=== PATIENT | male | born 1950 | race Caucasian/White ===

== ENCOUNTER 2018-06-06 19:00 | Inpatient (IN) | payer MEDICARE, MEDICAID ==
[~2018-06-06] VITALS: Ht 175.3 cm; Wt 62.5 kg
[~2018-06-06 19:00] MED LIST: AZIT250T9 PO; CLON-570 PO; METH10 PO; RANI150T7 PO
[2018-06-06] MEDS ORDERED: HALOPERIDOL 5 MG TABLET PO PRN (20:00)
[2018-06-06] MEDS ORDERED: ZOLPIDEM TARTRATE 10 MG TABLET PO PRN (20:00)
[2018-06-06] MEDS ORDERED: LORazepam 1 MG TABLET PO PRN (20:00)
[2018-06-06 20:01] VITALS: BP 126/74
[2018-06-06 20:15] VITALS: BP 125/71
[2018-06-06] MEDS ORDERED: PNEUMOCOCCAL VACCINE POLYVALENT 0.5 ML VIAL [PPSV23] IM ONE (20:30)
[2018-06-06] MEDS ORDERED: ONDANSETRON HCL 4 MG TABLET PO PRN (21:30)
[2018-06-06] MEDS ORDERED: CloNIDine HCL 0.1 MG TABLET PO PRN (21:30)
[2018-06-06] MEDS ORDERED: PETROLATUM,WHITE 71 GM JELLY TP PRN (21:30)
[2018-06-06] MEDS ORDERED: ACETAMINOPHEN 325 MG TABLET PO PRN (21:30)
[2018-06-06] MEDS ORDERED: ALBUTEROL SULFATE HFA 90 MCG/PUFF 8 GM INHALER IH PRN (21:30)
[2018-06-06] MEDS ORDERED: MAGNESIUM HYDROXIDE SUSPENSION 30 ML UDCUP PO PRN (21:30)
[2018-06-06] MEDS ORDERED: MAG HYDROX/AL HYDROX/SIMETH ES 30 ML SUSPENSION UDCUP PO PRN (21:30)
[2018-06-06] MEDS ORDERED: LOPERAMIDE HCL 2 MG CAPSULE PO PRN (21:30)
[2018-06-07] VITALS (10 sets, daily range): BP systolic 92–143; BP diastolic 60–76
[2018-06-07 08:46] LABS: BASOPHILS % (AUTO) 0.3 % (0.0-2.0); EOSINOPHILS % (AUTO) 0.4 % (1.0-6.0); HEMATOCRIT 32.1 % (41-53); LYMPHOCYTES # (AUTO) 2.3 K/uL (1.0-4.8); LYMPHOCYTES % (AUTO) 26.9 % (22.0-44.0); MEAN CORPUSCULAR HEMOGLOBIN 31.2 pg (26.0-34.0); MEAN CORPUSCULAR HGB CONC 34.1 G/dL (31.0-37.0); MEAN CORPUSCULAR VOLUME 91 fL (80-100); MONOCYTES # (AUTO) 0.9 K/uL (0.1-1.0); MONOCYTES % (AUTO) 10.1 % (2.0-9.0); NEUTROPHILS # (AUTO) 5.4 K/uL (1.8-7.7); NEUTROPHILS % (AUTO) 62.3 % (40.0-70.0); PLATELET COUNT (AUTO) 374 K/uL (150-450); RED BLOOD CELL COUNT(AUTO) 3.52 MIL/uL (4.50-5.90); RED CELL DISTRIBUTION WIDTH 15.3 % (11.5-14.5)
[2018-06-07 09:07] LABS: HEMOGLOBIN A1C 5.3 % (4.5-6.2)
[2018-06-07 09:14] LABS: ALANINE AMINOTRANSFERASE 27 U/L (12-78); ALBUMIN 2.3 g/dL (3.4-5.0); ALKALINE PHOSPHATASE 89 U/L (46-116); ANION GAP 5 mmol/L (8-16); ASPARTATE AMINOTRANSFERASE 29 U/L (15-37); BILIRUBIN,TOTAL 0.2 mg/dL (0.1-1.0); CALCIUM, TOTAL 8.1 mg/dL (8.8-10.5); CARBON DIOXIDE 30 mmol/L (22-29); CHLORIDE 104 mmol/L (98-107); CHOL/HDL RATIO 3.4 (4.2-7.3); CHOLESTEROL 85 mg/dL (131-200); CREATININE 0.72 mg/dL (0.60-1.30); FREE T4 (FREE THYROXINE) 1.02 ng/dL (0.76-1.46); GLOMERULAR FILTR. RATE CALC > 60 mL/min (>60); GLUCOSE,RANDOM 72 mg/dL (70-110); HDL CHOLESTEROL 25 mg/dL (40-60); LDL CHOL (CALC.) 47 mg/dL (0-130); POTASSIUM 3.9 mmol/L (3.5-5.1); SODIUM SERUM 139 mmol/L (136-145); TOTAL PROTEIN, SERUM 7.5 g/dL (6.4-8.2); TRIGLYCERIDES 63 mg/dL (15-150); UREA NITROGEN, BLOOD 11 mg/dL (7-18)
[2018-06-07] MEDS: BACITRACIN 28.4 GM OINTMENT TP SCH (09:21)
[2018-06-07] MEDS: METHADONE HCL 10 MG TABLET PO SCH (12:02)
[2018-06-07] MEDS: OLANZapine 5 MG TABLET PO SCH (16:48)
[2018-06-08 06:32] VITALS: BP 110/68
[2018-06-08 06:45] VITALS: BP 126/81
[2018-06-08 08:00] VITALS: BP 134/67
[2018-06-08] MEDS: OLANZapine 5 MG TABLET PO SCH ×2 (08:21→16:41)
[2018-06-08] MEDS: THIAMINE HCL 100 MG TABLET PO SCH (08:21)
[2018-06-08] MEDS: METHADONE HCL 10 MG TABLET PO SCH (08:21)
[2018-06-08] MEDS: BACITRACIN 28.4 GM OINTMENT TP SCH (08:21)
[2018-06-08] MEDS: FOLIC ACID 1 MG TABLET PO SCH (08:21)
[2018-06-08 10:45] VITALS: BP 117/92
[2018-06-08 14:45] VITALS: BP 119/85
[2018-06-08 16:15] VITALS: BP 108/63
[2018-06-09 05:41] VITALS: BP 110/70
[2018-06-09 08:00] VITALS: BP 136/71
[2018-06-09 08:09] VITALS: BP 136/71
[2018-06-09] MEDS: METHADONE HCL 10 MG TABLET PO SCH (08:42)
[2018-06-09] MEDS: BACITRACIN 28.4 GM OINTMENT TP SCH (08:43)
[2018-06-09] MEDS: OLANZapine 5 MG TABLET PO SCH (08:43)
[2018-06-09] MEDS: FOLIC ACID 1 MG TABLET PO SCH (08:43)
[2018-06-09] MEDS: THIAMINE HCL 100 MG TABLET PO SCH (08:43)
[2018-06-09] MEDS: FERROUS SULFATE 325 MG EC TABLET PO SCH (16:25)
[2018-06-09] MEDS: IBUPROFEN 400 MG TABLET PO PRN (16:25)
[2018-06-09] MEDS: OLANZapine 10 MG TABLET PO SCH (16:26)
[2018-06-09 16:47] VITALS: BP 115/60
[2018-06-10] MEDS: AMOX TR/POT CLAV 500 MG/125 MG TABLET PO SCH ×3 (00:48→16:17)
[2018-06-10 00:58] VITALS: BP 136/89
[2018-06-10] MEDS: IBUPROFEN 400 MG TABLET PO PRN ×2 (01:03→21:43)
[2018-06-10] MEDS: FERROUS SULFATE 325 MG EC TABLET PO SCH ×2 (07:04→16:33)
[2018-06-10 08:27] VITALS: BP_SYST 116; BP_SYST 123; BP_DIAS 60; BP_DIAS 63
[2018-06-10] MEDS: THIAMINE HCL 100 MG TABLET PO SCH (08:34)
[2018-06-10] MEDS: FOLIC ACID 1 MG TABLET PO SCH (08:34)
[2018-06-10] MEDS: OLANZapine 10 MG TABLET PO SCH ×2 (08:34→16:33)
[2018-06-10] MEDS: METHADONE HCL 10 MG TABLET PO SCH (08:34)
[2018-06-10] MEDS: BACITRACIN 28.4 GM OINTMENT TP SCH (08:35)
[2018-06-10] MEDS: BuPROPion HCL XL 150 MG ER TABLET PO SCH (11:00)
[2018-06-10 16:15] VITALS: BP 138/89
[2018-06-10 21:37] VITALS: BP 137/66
[2018-06-11 00:03] VITALS: BP 122/71
[2018-06-11] MEDS: AMOX TR/POT CLAV 500 MG/125 MG TABLET PO SCH ×3 (00:15→16:10)
[2018-06-11] MEDS: FERROUS SULFATE 325 MG EC TABLET PO SCH ×2 (06:58→17:06)
[2018-06-11 08:02] VITALS: BP 116/85
[2018-06-11] MEDS: OLANZapine 10 MG TABLET PO SCH ×2 (08:09→17:07)
[2018-06-11] MEDS: BuPROPion HCL XL 150 MG ER TABLET PO SCH (08:09)
[2018-06-11] MEDS: THIAMINE HCL 100 MG TABLET PO SCH (08:09)
[2018-06-11] MEDS: FOLIC ACID 1 MG TABLET PO SCH (08:09)
[2018-06-11] MEDS: METHADONE HCL 10 MG TABLET PO SCH (08:09)
[2018-06-11] MEDS: BACITRACIN 28.4 GM OINTMENT TP SCH (08:13)
[2018-06-11] MEDS: GuaiFENesin/D-METHORPHAN [SUGAR-FREE] 200-20MG/10 ML SYRUP UDCUP PO PRN (08:20)
[2018-06-11 13:13] VITALS: BP 112/78
[2018-06-11] MEDS: TraMADol HCL 50 MG TABLET PO PRN (13:13)
[2018-06-11 16:02] VITALS: BP 111/73
[2018-06-11] MEDS: LEVOFLOXACIN 250 MG TABLET PO SCH (16:02)
[2018-06-11 22:03] VITALS: BP 139/78
[2018-06-11] MEDS: IBUPROFEN 400 MG TABLET PO PRN (22:11)
[2018-06-12] MEDS: AMOX TR/POT CLAV 500 MG/125 MG TABLET PO SCH ×3 (00:03→17:42)
[2018-06-12 06:24] VITALS: BP 118/77
[2018-06-12] MEDS: FERROUS SULFATE 325 MG EC TABLET PO SCH ×3 (06:39→17:42)
[2018-06-12 07:21] LABS: BASOPHILS % (AUTO) 0.4 % (0.0-2.0); EOSINOPHILS % (AUTO) 0.5 % (1.0-6.0); HEMATOCRIT 27.8 % (41-53); HEMOGLOBIN 9.8 g/dL (13.5-17.5); LYMPHOCYTES # (AUTO) 2.1 K/uL (1.0-4.8); LYMPHOCYTES % (AUTO) 27.6 % (22.0-44.0); MEAN CORPUSCULAR HEMOGLOBIN 31.4 pg (26.0-34.0); MEAN CORPUSCULAR HGB CONC 35.1 G/dL (31.0-37.0); MEAN CORPUSCULAR VOLUME 90 fL (80-100); MONOCYTES # (AUTO) 1.1 K/uL (0.1-1.0); NEUTROPHILS # (AUTO) 4.3 K/uL (1.8-7.7); NEUTROPHILS % (AUTO) 56.5 % (40.0-70.0); PLATELET COUNT (AUTO) 380 K/uL (150-450); RED BLOOD CELL COUNT(AUTO) 3.11 MIL/uL (4.50-5.90); RED CELL DISTRIBUTION WIDTH 14.9 % (11.5-14.5)
[2018-06-12 08:06] VITALS: BP 137/82
[2018-06-12] MEDS: METHADONE HCL 10 MG TABLET PO SCH (08:37)
[2018-06-12] MEDS: FOLIC ACID 1 MG TABLET PO SCH (08:38)
[2018-06-12] MEDS: THIAMINE HCL 100 MG TABLET PO SCH (08:38)
[2018-06-12] MEDS: BuPROPion HCL XL 150 MG ER TABLET PO SCH (08:38)
[2018-06-12] MEDS: LEVOFLOXACIN 250 MG TABLET PO SCH (08:38)
[2018-06-12] MEDS: OLANZapine 10 MG TABLET PO SCH ×2 (08:38→17:42)
[2018-06-12] MEDS: BACITRACIN 28.4 GM OINTMENT TP SCH (08:39)
[2018-06-12 17:54] VITALS: BP 133/77
[2018-06-12] MEDS ORDERED: BENZONATATE 100 MG CAPSULE PO PRN (19:00)
[2018-06-13] MEDS: AMOX TR/POT CLAV 500 MG/125 MG TABLET PO SCH ×3 (00:02→16:02)
[2018-06-13 05:17] VITALS: BP 126/68
[2018-06-13] MEDS: FERROUS SULFATE 325 MG EC TABLET PO SCH ×3 (06:39→16:56)
[2018-06-13 08:04] VITALS: BP 124/82
[2018-06-13] MEDS: GuaiFENesin/D-METHORPHAN [SUGAR-FREE] 200-20MG/10 ML SYRUP UDCUP PO PRN (08:29)
[2018-06-13] MEDS: LEVOFLOXACIN 250 MG TABLET PO SCH (08:58)
[2018-06-13] MEDS: METHADONE HCL 10 MG TABLET PO SCH (08:58)
[2018-06-13] MEDS: FOLIC ACID 1 MG TABLET PO SCH (08:58)
[2018-06-13] MEDS: OLANZapine 10 MG TABLET PO SCH ×2 (08:59→16:56)
[2018-06-13] MEDS: BuPROPion HCL XL 150 MG ER TABLET PO SCH (08:59)
[2018-06-13] MEDS: THIAMINE HCL 100 MG TABLET PO SCH (08:59)
[2018-06-13] MEDS: AZITHROMYCIN 250 MG TABLET PO SCH (08:59)
[2018-06-13] MEDS: BACITRACIN 28.4 GM OINTMENT TP SCH (08:59)
[2018-06-13 16:02] VITALS: BP 118/74
[2018-06-13] MEDS: TraMADol HCL 50 MG TABLET PO PRN (16:02)
[2018-06-14] MEDS: AMOX TR/POT CLAV 500 MG/125 MG TABLET PO SCH ×3 (00:38→16:04)
[2018-06-14 02:17] VITALS: BP 120/68
[2018-06-14] MEDS: FERROUS SULFATE 325 MG EC TABLET PO SCH ×3 (07:14→16:45)
[2018-06-14 08:43] VITALS: BP 136/77
[2018-06-14] MEDS: OLANZapine 10 MG TABLET PO SCH ×2 (08:58→16:45)
[2018-06-14] MEDS: METHADONE HCL 10 MG TABLET PO SCH (08:59)
[2018-06-14] MEDS: FOLIC ACID 1 MG TABLET PO SCH (08:59)
[2018-06-14] MEDS: AZITHROMYCIN 250 MG TABLET PO SCH (08:59)
[2018-06-14] MEDS: THIAMINE HCL 100 MG TABLET PO SCH (08:59)
[2018-06-14] MEDS: BACITRACIN 28.4 GM OINTMENT TP SCH (08:59)
[2018-06-14] MEDS: BuPROPion HCL XL 150 MG ER TABLET PO SCH (08:59)
[2018-06-14] MEDS: LEVOFLOXACIN 250 MG TABLET PO SCH (09:01)
[2018-06-14 16:04] VITALS: BP 126/79
[2018-06-14 22:56] VITALS: BP 130/78
[2018-06-14] MEDS: TraMADol HCL 50 MG TABLET PO PRN (22:56)
[2018-06-15] MEDS: AMOX TR/POT CLAV 500 MG/125 MG TABLET PO SCH ×3 (00:30→16:11)
[2018-06-15 02:42] VITALS: BP 126/72
[2018-06-15] MEDS: FERROUS SULFATE 325 MG EC TABLET PO SCH ×3 (07:12→16:33)
[2018-06-15 08:19] VITALS: BP 125/79
[2018-06-15] MEDS: OLANZapine 10 MG TABLET PO SCH ×2 (09:16→16:33)
[2018-06-15] MEDS: AZITHROMYCIN 250 MG TABLET PO SCH (09:17)
[2018-06-15] MEDS: METHADONE HCL 10 MG TABLET PO SCH (09:17)
[2018-06-15] MEDS: FOLIC ACID 1 MG TABLET PO SCH (09:17)
[2018-06-15] MEDS: BACITRACIN 28.4 GM OINTMENT TP SCH (09:17)
[2018-06-15] MEDS: LEVOFLOXACIN 250 MG TABLET PO SCH (09:17)
[2018-06-15] MEDS: BuPROPion HCL XL 150 MG ER TABLET PO SCH (09:17)
[2018-06-15] MEDS: THIAMINE HCL 100 MG TABLET PO SCH (09:17)
[2018-06-15 16:06] VITALS: BP 113/73
[2018-06-16 01:29] VITALS: BP 110/70
[2018-06-16] MEDS: FERROUS SULFATE 325 MG EC TABLET PO SCH ×3 (07:02→16:44)
[2018-06-16 08:29] VITALS: BP 125/67
[2018-06-16] MEDS: AZITHROMYCIN 250 MG TABLET PO SCH (08:41)
[2018-06-16] MEDS: FOLIC ACID 1 MG TABLET PO SCH (08:41)
[2018-06-16] MEDS: THIAMINE HCL 100 MG TABLET PO SCH (08:41)
[2018-06-16] MEDS: BuPROPion HCL XL 150 MG ER TABLET PO SCH (08:41)
[2018-06-16] MEDS: OLANZapine 10 MG TABLET PO SCH ×2 (08:41→16:44)
[2018-06-16] MEDS: METHADONE HCL 10 MG TABLET PO SCH (08:42)
[2018-06-16] MEDS: BACITRACIN 28.4 GM OINTMENT TP SCH (08:43)
[2018-06-16] MEDS: LEVOFLOXACIN 250 MG TABLET PO SCH (09:05)
[2018-06-16 16:03] VITALS: BP 122/71
[2018-06-16 22:04] VITALS: BP 137/69
[2018-06-16] MEDS: TraMADol HCL 50 MG TABLET PO PRN (22:04)
[2018-06-17 04:26] VITALS: BP 126/81
[2018-06-17] MEDS: FERROUS SULFATE 325 MG EC TABLET PO SCH ×3 (06:54→16:16)
[2018-06-17 08:25] VITALS: BP 123/67
[2018-06-17] MEDS: AZITHROMYCIN 250 MG TABLET PO SCH (09:01)
[2018-06-17] MEDS: OLANZapine 10 MG TABLET PO SCH ×2 (09:01→16:16)
[2018-06-17] MEDS: LEVOFLOXACIN 250 MG TABLET PO SCH (09:01)
[2018-06-17] MEDS: FOLIC ACID 1 MG TABLET PO SCH (09:01)
[2018-06-17] MEDS: THIAMINE HCL 100 MG TABLET PO SCH (09:01)
[2018-06-17] MEDS: METHADONE HCL 10 MG TABLET PO SCH (09:01)
[2018-06-17] MEDS: BuPROPion HCL XL 150 MG ER TABLET PO SCH (09:01)
[2018-06-17 16:06] VITALS: BP 126/60
[2018-06-18 03:39] VITALS: BP 128/64
[2018-06-18] MEDS: FERROUS SULFATE 325 MG EC TABLET PO SCH ×3 (06:58→16:23)
[2018-06-18 08:26] VITALS: BP 124/83
[2018-06-18] MEDS: THIAMINE HCL 100 MG TABLET PO SCH (08:56)
[2018-06-18] MEDS: BuPROPion HCL XL 150 MG ER TABLET PO SCH (08:56)
[2018-06-18] MEDS: AZITHROMYCIN 250 MG TABLET PO SCH (08:56)
[2018-06-18] MEDS: FOLIC ACID 1 MG TABLET PO SCH (08:57)
[2018-06-18] MEDS: LEVOFLOXACIN 250 MG TABLET PO SCH (08:57)
[2018-06-18] MEDS: METHADONE HCL 10 MG TABLET PO SCH (08:57)
[2018-06-18] MEDS: OLANZapine 10 MG TABLET PO SCH ×2 (08:57→16:23)
[2018-06-18 11:37] VITALS: BP 118/78
[2018-06-18] MEDS: IBUPROFEN 400 MG TABLET PO PRN (11:37)
[2018-06-18] MEDS ORDERED: OLAN10TA3 PO (12:25)
[2018-06-18] MEDS ORDERED: LEVO500 PO (12:25)
[2018-06-18] MEDS ORDERED: FERR-89 PO (12:25)
[2018-06-18] MEDS ORDERED: BUPR-93 PO (12:25)
[2018-06-18 16:00] VITALS: BP 120/78
[2018-06-18] MEDS: TraMADol HCL 50 MG TABLET PO PRN (16:24)
[2018-06-19 00:15] VITALS: BP 108/63
[2018-06-19] MEDS: FERROUS SULFATE 325 MG EC TABLET PO SCH ×3 (07:00→16:37)
[2018-06-19 08:14] VITALS: BP 114/66
[2018-06-19] MEDS: AZITHROMYCIN 250 MG TABLET PO SCH (08:31)
[2018-06-19] MEDS: BuPROPion HCL XL 150 MG ER TABLET PO SCH (08:31)
[2018-06-19] MEDS: THIAMINE HCL 100 MG TABLET PO SCH (08:31)
[2018-06-19] MEDS: OLANZapine 10 MG TABLET PO SCH ×2 (08:31→16:37)
[2018-06-19] MEDS: METHADONE HCL 10 MG TABLET PO SCH (08:31)
[2018-06-19] MEDS: FOLIC ACID 1 MG TABLET PO SCH (08:31)
[2018-06-19] MEDS: LEVOFLOXACIN 250 MG TABLET PO SCH (09:09)
[2018-06-19 13:27] VITALS: BP 122/73
[2018-06-19] MEDS: TraMADol HCL 50 MG TABLET PO PRN (13:27)
[2018-06-19 16:07] VITALS: BP 107/60
[2018-06-20 00:30] VITALS: BP 121/68
[2018-06-20] MEDS: FERROUS SULFATE 325 MG EC TABLET PO SCH ×3 (07:07→17:01)
[2018-06-20 08:21] VITALS: BP 122/75
[2018-06-20] MEDS: LEVOFLOXACIN 250 MG TABLET PO SCH (08:46)
[2018-06-20] MEDS: FOLIC ACID 1 MG TABLET PO SCH (08:46)
[2018-06-20] MEDS: METHADONE HCL 10 MG TABLET PO SCH (08:46)
[2018-06-20] MEDS: THIAMINE HCL 100 MG TABLET PO SCH (08:46)
[2018-06-20] MEDS: BuPROPion HCL XL 150 MG ER TABLET PO SCH (08:46)
[2018-06-20] MEDS: OLANZapine 10 MG TABLET PO SCH ×2 (08:46→17:01)
[2018-06-20 16:08] VITALS: BP 137/74
[2018-06-21 05:11] VITALS: BP 128/72
[2018-06-21] MEDS: FERROUS SULFATE 325 MG EC TABLET PO SCH ×3 (07:09→16:34)
[2018-06-21] MEDS: BuPROPion HCL XL 150 MG ER TABLET PO SCH (08:50)
[2018-06-21] MEDS: FOLIC ACID 1 MG TABLET PO SCH (08:50)
[2018-06-21] MEDS: THIAMINE HCL 100 MG TABLET PO SCH (08:50)
[2018-06-21] MEDS: OLANZapine 10 MG TABLET PO SCH ×2 (08:50→16:34)
[2018-06-21] MEDS: LEVOFLOXACIN 250 MG TABLET PO SCH (08:50)
[2018-06-21] MEDS: METHADONE HCL 10 MG TABLET PO SCH (08:50)
[2018-06-21 09:36] VITALS: BP 120/70
[2018-06-21] MEDS ORDERED: LEVOFLOXACIN 250 MG TABLET PO SCH (10:00)
[2018-06-21] MEDS: IBUPROFEN 400 MG TABLET PO PRN (15:56)
[2018-06-21 16:23] VITALS: BP 136/84
[2018-06-22 05:48] VITALS: BP 131/78
[2018-06-22] MEDS: TraMADol HCL 50 MG TABLET PO PRN (05:54)
[2018-06-22] MEDS: FERROUS SULFATE 325 MG EC TABLET PO SCH ×3 (06:45→16:34)
[2018-06-22 08:25] VITALS: BP 120/65
[2018-06-22] MEDS: THIAMINE HCL 100 MG TABLET PO SCH (08:39)
[2018-06-22] MEDS: FOLIC ACID 1 MG TABLET PO SCH (08:39)
[2018-06-22] MEDS: BuPROPion HCL XL 150 MG ER TABLET PO SCH (08:39)
[2018-06-22] MEDS: OLANZapine 10 MG TABLET PO SCH ×2 (08:39→16:34)
[2018-06-22] MEDS: METHADONE HCL 10 MG TABLET PO SCH (08:40)
[2018-06-22] MEDS: LEVOFLOXACIN 250 MG TABLET PO SCH (08:40)
[2018-06-22 14:19] VITALS: BP 116/72
[2018-06-22] MEDS: IBUPROFEN 400 MG TABLET PO PRN (14:19)
[2018-06-22 16:11] VITALS: BP 110/60
[2018-06-23 05:00] VITALS: BP 108/62
[2018-06-23] MEDS: FERROUS SULFATE 325 MG EC TABLET PO SCH ×3 (06:43→16:29)
[2018-06-23 08:17] VITALS: BP 106/69
[2018-06-23] MEDS: THIAMINE HCL 100 MG TABLET PO SCH (08:54)
[2018-06-23] MEDS: BuPROPion HCL XL 150 MG ER TABLET PO SCH (08:54)
[2018-06-23] MEDS: FOLIC ACID 1 MG TABLET PO SCH (08:54)
[2018-06-23] MEDS: LEVOFLOXACIN 250 MG TABLET PO SCH (08:54)
[2018-06-23] MEDS: OLANZapine 10 MG TABLET PO SCH (08:54)
[2018-06-23] MEDS: METHADONE HCL 10 MG TABLET PO SCH (08:54)
[2018-06-23 16:05] VITALS: BP 129/72
[2018-06-23] MEDS: OLANZapine 7.5 MG TABLET PO SCH (16:30)
[2018-06-24 01:52] VITALS: BP 106/68
[2018-06-24] MEDS: FERROUS SULFATE 325 MG EC TABLET PO SCH ×3 (06:32→16:37)
[2018-06-24 08:22] VITALS: BP 113/66
[2018-06-24] MEDS: THIAMINE HCL 100 MG TABLET PO SCH (08:35)
[2018-06-24] MEDS: FOLIC ACID 1 MG TABLET PO SCH (08:35)
[2018-06-24] MEDS: LEVOFLOXACIN 250 MG TABLET PO SCH (08:35)
[2018-06-24] MEDS: OLANZapine 7.5 MG TABLET PO SCH ×2 (08:35→16:37)
[2018-06-24] MEDS: BuPROPion HCL XL 150 MG ER TABLET PO SCH (08:35)
[2018-06-24] MEDS: METHADONE HCL 10 MG TABLET PO SCH (08:36)
[2018-06-24 11:02] VITALS: BP 116/72
[2018-06-24] MEDS: TraMADol HCL 50 MG TABLET PO PRN (11:02)
[2018-06-24 16:11] VITALS: BP 120/71
[2018-06-25 00:01] VITALS: BP 100/61
[2018-06-25] MEDS: FERROUS SULFATE 325 MG EC TABLET PO SCH ×3 (06:35→16:28)
[2018-06-25 08:15] VITALS: BP 105/49
[2018-06-25 08:45] VITALS: BP 110/61
[2018-06-25] MEDS: FOLIC ACID 1 MG TABLET PO SCH (08:45)
[2018-06-25] MEDS: METHADONE HCL 10 MG TABLET PO SCH (08:45)
[2018-06-25] MEDS: THIAMINE HCL 100 MG TABLET PO SCH (08:45)
[2018-06-25] MEDS: BuPROPion HCL XL 150 MG ER TABLET PO SCH (08:45)
[2018-06-25] MEDS: OLANZapine 7.5 MG TABLET PO SCH ×2 (08:45→16:28)
[2018-06-25 16:13] VITALS: BP 119/69
[2018-06-26 02:47] VITALS: BP 114/76
[2018-06-26] MEDS: FERROUS SULFATE 325 MG EC TABLET PO SCH ×3 (06:49→16:58)
[2018-06-26 08:42] VITALS: BP 117/66
[2018-06-26] MEDS: BuPROPion HCL XL 150 MG ER TABLET PO SCH (08:46)
[2018-06-26] MEDS: FOLIC ACID 1 MG TABLET PO SCH (08:47)
[2018-06-26] MEDS: THIAMINE HCL 100 MG TABLET PO SCH (08:47)
[2018-06-26] MEDS: METHADONE HCL 10 MG TABLET PO SCH (08:47)
[2018-06-26] MEDS: OLANZapine 7.5 MG TABLET PO SCH ×2 (08:47→16:58)
[2018-06-26 13:58] VITALS: BP 116/68
[2018-06-26] MEDS: IBUPROFEN 400 MG TABLET PO PRN (13:58)
[2018-06-26 16:10] VITALS: BP 112/69
[2018-06-27 04:14] VITALS: BP 117/75
[2018-06-27] MEDS: FERROUS SULFATE 325 MG EC TABLET PO SCH ×3 (06:16→17:00)
[2018-06-27 08:13] VITALS: BP 114/67
[2018-06-27] MEDS: METHADONE HCL 10 MG TABLET PO SCH (08:24)
[2018-06-27] MEDS: THIAMINE HCL 100 MG TABLET PO SCH (08:24)
[2018-06-27] MEDS: BuPROPion HCL XL 150 MG ER TABLET PO SCH (08:24)
[2018-06-27] MEDS: OLANZapine 7.5 MG TABLET PO SCH ×2 (08:24→17:00)
[2018-06-27] MEDS: FOLIC ACID 1 MG TABLET PO SCH (08:24)
[2018-06-27 16:10] VITALS: BP 114/60
[2018-06-28 01:26] VITALS: BP 114/63
[2018-06-28] MEDS: FERROUS SULFATE 325 MG EC TABLET PO SCH ×3 (06:01→16:26)
[2018-06-28 08:18] VITALS: BP 135/77
[2018-06-28] MEDS: FOLIC ACID 1 MG TABLET PO SCH (08:45)
[2018-06-28] MEDS: OLANZapine 7.5 MG TABLET PO SCH ×2 (08:45→16:27)
[2018-06-28] MEDS: METHADONE HCL 10 MG TABLET PO SCH (08:45)
[2018-06-28] MEDS: BuPROPion HCL XL 150 MG ER TABLET PO SCH (08:45)
[2018-06-28] MEDS: THIAMINE HCL 100 MG TABLET PO SCH (08:45)
[2018-06-28 13:25] VITALS: BP 110/62
[2018-06-28] MEDS: IBUPROFEN 400 MG TABLET PO PRN (13:25)
[2018-06-28 16:19] VITALS: BP 103/74
[2018-06-29 04:36] VITALS: BP 116/78
[2018-06-29] MEDS: FERROUS SULFATE 325 MG EC TABLET PO SCH ×3 (07:04→16:33)
[2018-06-29 08:28] VITALS: BP 137/61
[2018-06-29] MEDS: BuPROPion HCL XL 150 MG ER TABLET PO SCH (09:03)
[2018-06-29] MEDS: FOLIC ACID 1 MG TABLET PO SCH (09:03)
[2018-06-29] MEDS: THIAMINE HCL 100 MG TABLET PO SCH (09:03)
[2018-06-29] MEDS: OLANZapine 7.5 MG TABLET PO SCH ×2 (09:04→16:33)
[2018-06-29] MEDS: METHADONE HCL 10 MG TABLET PO SCH (09:05)
[2018-06-29] MEDS ORDERED: LORazepam 2 MG/ML VIAL IM PRN (10:30)
[2018-06-29 16:21] VITALS: BP 124/74
[2018-06-30 00:12] VITALS: BP 122/80
[2018-06-30] MEDS: FERROUS SULFATE 325 MG EC TABLET PO SCH ×3 (06:27→16:23)
[2018-06-30 08:41] VITALS: BP 108/68
[2018-06-30] MEDS: METHADONE HCL 10 MG TABLET PO SCH (08:47)
[2018-06-30] MEDS: BuPROPion HCL XL 150 MG ER TABLET PO SCH (08:47)
[2018-06-30] MEDS: FOLIC ACID 1 MG TABLET PO SCH (08:47)
[2018-06-30] MEDS: OLANZapine 7.5 MG TABLET PO SCH ×2 (08:47→16:23)
[2018-06-30] MEDS: THIAMINE HCL 100 MG TABLET PO SCH (08:47)
[2018-06-30 16:13] VITALS: BP 125/84
[2018-07-01 05:52] VITALS: BP 126/80
[2018-07-01] MEDS: FERROUS SULFATE 325 MG EC TABLET PO SCH ×3 (06:34→16:22)
[2018-07-01 08:30] VITALS: BP 109/64
[2018-07-01] MEDS: BuPROPion HCL XL 150 MG ER TABLET PO SCH (08:35)
[2018-07-01] MEDS: THIAMINE HCL 100 MG TABLET PO SCH (08:35)
[2018-07-01] MEDS: FOLIC ACID 1 MG TABLET PO SCH (08:35)
[2018-07-01] MEDS: OLANZapine 7.5 MG TABLET PO SCH ×2 (08:35→16:22)
[2018-07-01] MEDS: METHADONE HCL 10 MG TABLET PO SCH (08:35)
[2018-07-01 14:50] VITALS: BP 112/66
[2018-07-01] MEDS: IBUPROFEN 400 MG TABLET PO PRN (14:50)
[2018-07-01 16:16] VITALS: BP 118/68
[2018-07-02 01:00] VITALS: BP 131/72
[2018-07-02] MEDS: FERROUS SULFATE 325 MG EC TABLET PO SCH ×3 (06:43→16:19)
[2018-07-02 07:54] VITALS: BP 121/73
[2018-07-02 08:01] VITALS: BP 121/70
[2018-07-02] MEDS: BuPROPion HCL XL 150 MG ER TABLET PO SCH (08:15)
[2018-07-02] MEDS: DOCUSATE SODIUM 100 MG CAPSULE PO PRN ×2 (08:15→08:38)
[2018-07-02] MEDS: METHADONE HCL 10 MG TABLET PO SCH (08:15)
[2018-07-02] MEDS: FOLIC ACID 1 MG TABLET PO SCH (08:15)
[2018-07-02] MEDS: OLANZapine 7.5 MG TABLET PO SCH ×2 (08:15→16:20)
[2018-07-02] MEDS: THIAMINE HCL 100 MG TABLET PO SCH (08:15)
[2018-07-02 13:50] VITALS: BP 118/72
[2018-07-02] MEDS: IBUPROFEN 400 MG TABLET PO PRN (13:50)
[2018-07-02 16:12] VITALS: BP 120/69
[2018-07-03 01:56] VITALS: BP 102/63
[2018-07-03] MEDS: FERROUS SULFATE 325 MG EC TABLET PO SCH ×3 (06:47→16:34)
[2018-07-03 08:15] VITALS: BP 142/82
[2018-07-03] MEDS: FOLIC ACID 1 MG TABLET PO SCH (08:24)
[2018-07-03] MEDS: BuPROPion HCL XL 150 MG ER TABLET PO SCH (08:24)
[2018-07-03] MEDS: OLANZapine 7.5 MG TABLET PO SCH ×2 (08:24→16:34)
[2018-07-03] MEDS: METHADONE HCL 10 MG TABLET PO SCH (08:24)
[2018-07-03] MEDS: THIAMINE HCL 100 MG TABLET PO SCH (08:24)
[2018-07-03 16:10] VITALS: BP 110/70
[2018-07-03 19:41] VITALS: BP 140/84
[2018-07-03] MEDS: TraMADol HCL 50 MG TABLET PO PRN (19:48)
[2018-07-04 05:27] VITALS: BP 133/88
[2018-07-04] MEDS: FERROUS SULFATE 325 MG EC TABLET PO SCH ×3 (06:50→16:32)
[2018-07-04 08:30] VITALS: BP 124/77
[2018-07-04] MEDS: THIAMINE HCL 100 MG TABLET PO SCH (08:30)
[2018-07-04] MEDS: FOLIC ACID 1 MG TABLET PO SCH (08:30)
[2018-07-04] MEDS: BuPROPion HCL XL 150 MG ER TABLET PO SCH (08:30)
[2018-07-04] MEDS: OLANZapine 7.5 MG TABLET PO SCH ×2 (08:30→16:32)
[2018-07-04] MEDS: METHADONE HCL 10 MG TABLET PO SCH (08:34)
[2018-07-04 16:08] VITALS: BP 118/68
[2018-07-05 03:19] VITALS: BP 120/72
[2018-07-05] MEDS: FERROUS SULFATE 325 MG EC TABLET PO SCH ×3 (06:20→16:16)
[2018-07-05 08:25] VITALS: BP 101/60
[2018-07-05] MEDS: OLANZapine 7.5 MG TABLET PO SCH ×2 (08:25→16:16)
[2018-07-05] MEDS: BuPROPion HCL XL 150 MG ER TABLET PO SCH (08:25)
[2018-07-05] MEDS: FOLIC ACID 1 MG TABLET PO SCH (08:25)
[2018-07-05] MEDS: METHADONE HCL 10 MG TABLET PO SCH (08:25)
[2018-07-05] MEDS: THIAMINE HCL 100 MG TABLET PO SCH (08:26)
[2018-07-05] MEDS: IBUPROFEN 400 MG TABLET PO PRN (09:31)
[2018-07-05 10:31] VITALS: BP 110/65
[2018-07-05 16:07] VITALS: BP 121/73
[2018-07-06 01:04] VITALS: BP 103/64
[2018-07-06] MEDS: FERROUS SULFATE 325 MG EC TABLET PO SCH ×3 (06:48→16:31)
[2018-07-06 07:49] VITALS: BP 112/67
[2018-07-06] MEDS: FOLIC ACID 1 MG TABLET PO SCH (08:11)
[2018-07-06] MEDS: THIAMINE HCL 100 MG TABLET PO SCH (08:11)
[2018-07-06] MEDS: BuPROPion HCL XL 150 MG ER TABLET PO SCH (08:11)
[2018-07-06] MEDS: OLANZapine 7.5 MG TABLET PO SCH ×2 (08:11→16:31)
[2018-07-06] MEDS: METHADONE HCL 10 MG TABLET PO SCH (08:12)
[2018-07-06 09:14] VITALS: BP 112/77
[2018-07-06 16:04] VITALS: BP 101/69
[2018-07-07 01:33] VITALS: BP 118/76
[2018-07-07] MEDS: FERROUS SULFATE 325 MG EC TABLET PO SCH ×3 (06:39→16:50)
[2018-07-07 08:06] VITALS: BP 127/75
[2018-07-07] MEDS: METHADONE HCL 10 MG TABLET PO SCH (08:19)
[2018-07-07] MEDS: OLANZapine 7.5 MG TABLET PO SCH ×2 (08:19→16:51)
[2018-07-07] MEDS: BuPROPion HCL XL 150 MG ER TABLET PO SCH (08:19)
[2018-07-07] MEDS: THIAMINE HCL 100 MG TABLET PO SCH (08:19)
[2018-07-07] MEDS: FOLIC ACID 1 MG TABLET PO SCH (08:19)
[2018-07-07] MEDS: IBUPROFEN 400 MG TABLET PO PRN (15:06)
[2018-07-07 16:21] VITALS: BP 123/75
[2018-07-08 01:03] VITALS: BP 118/63
[2018-07-08] MEDS: FERROUS SULFATE 325 MG EC TABLET PO SCH ×3 (06:45→16:33)
[2018-07-08 08:04] VITALS: BP 110/66
[2018-07-08] MEDS: BuPROPion HCL XL 150 MG ER TABLET PO SCH (08:14)
[2018-07-08] MEDS: OLANZapine 7.5 MG TABLET PO SCH ×2 (08:14→16:33)
[2018-07-08] MEDS: THIAMINE HCL 100 MG TABLET PO SCH (08:14)
[2018-07-08] MEDS: FOLIC ACID 1 MG TABLET PO SCH (08:14)
[2018-07-08] MEDS: METHADONE HCL 10 MG TABLET PO SCH (08:14)
[2018-07-08 11:00] VITALS: BP 114/70
[2018-07-08] MEDS: IBUPROFEN 400 MG TABLET PO PRN (11:00)
[2018-07-08 16:10] VITALS: BP 119/78
[2018-07-09 03:15] VITALS: BP 105/61
[2018-07-09] MEDS: FERROUS SULFATE 325 MG EC TABLET PO SCH ×3 (06:31→16:33)
[2018-07-09] MEDS: FOLIC ACID 1 MG TABLET PO SCH (08:36)
[2018-07-09] MEDS: THIAMINE HCL 100 MG TABLET PO SCH (08:36)
[2018-07-09] MEDS: BuPROPion HCL XL 150 MG ER TABLET PO SCH (08:36)
[2018-07-09] MEDS: METHADONE HCL 10 MG TABLET PO SCH (08:36)
[2018-07-09] MEDS: OLANZapine 7.5 MG TABLET PO SCH ×2 (08:36→16:33)
[2018-07-09 11:52] VITALS: BP 112/68
[2018-07-09] MEDS: IBUPROFEN 400 MG TABLET PO PRN (11:52)
[2018-07-09 12:33] VITALS: BP 113/72
[2018-07-09 16:28] VITALS: BP 112/64
[2018-07-09] MEDS: TraMADol HCL 50 MG TABLET PO PRN (16:28)
[2018-07-10 00:06] VITALS: BP 116/63
[2018-07-10 01:15] VITALS: BP 127/99
[2018-07-10] MEDS: TraMADol HCL 50 MG TABLET PO PRN (01:21)
[2018-07-10] MEDS: FERROUS SULFATE 325 MG EC TABLET PO SCH ×3 (06:45→16:37)
[2018-07-10 08:17] VITALS: BP 119/79
[2018-07-10] MEDS: THIAMINE HCL 100 MG TABLET PO SCH (08:19)
[2018-07-10] MEDS: FOLIC ACID 1 MG TABLET PO SCH (08:19)
[2018-07-10] MEDS: METHADONE HCL 10 MG TABLET PO SCH (08:19)
[2018-07-10] MEDS: OLANZapine 7.5 MG TABLET PO SCH ×2 (08:19→16:37)
[2018-07-10] MEDS: BuPROPion HCL XL 150 MG ER TABLET PO SCH (08:19)
[2018-07-10 11:01] VITALS: BP 112/78
[2018-07-10] MEDS: IBUPROFEN 400 MG TABLET PO PRN (11:01)
[2018-07-10 16:17] VITALS: BP 111/66
[2018-07-11 01:02] VITALS: BP 116/76
[2018-07-11] MEDS: TraMADol HCL 50 MG TABLET PO PRN ×3 (01:04→19:24)
[2018-07-11] MEDS: FERROUS SULFATE 325 MG EC TABLET PO SCH ×3 (06:34→16:32)
[2018-07-11 06:59] VITALS: BP 114/74
[2018-07-11] MEDS: IBUPROFEN 400 MG TABLET PO PRN ×2 (07:05→17:24)
[2018-07-11 07:18] LABS: BASOPHILS % (AUTO) 0.4 % (0.0-2.0); EOSINOPHILS % (AUTO) 1.4 % (1.0-6.0); HEMATOCRIT 29.7 % (41-53); HEMOGLOBIN 9.7 g/dL (13.5-17.5); LYMPHOCYTES # (AUTO) 1.2 K/uL (1.0-4.8); LYMPHOCYTES % (AUTO) 17.8 % (22.0-44.0); MEAN CORPUSCULAR HEMOGLOBIN 29.3 pg (26.0-34.0); MEAN CORPUSCULAR HGB CONC 32.6 G/dL (31.0-37.0); MEAN CORPUSCULAR VOLUME 90 fL (80-100); MONOCYTES # (AUTO) 0.7 K/uL (0.1-1.0); MONOCYTES % (AUTO) 10.3 % (2.0-9.0); NEUTROPHILS # (AUTO) 4.9 K/uL (1.8-7.7); NEUTROPHILS % (AUTO) 70.1 % (40.0-70.0); PLATELET COUNT (AUTO) 261 K/uL (150-450); RED BLOOD CELL COUNT(AUTO) 3.29 MIL/uL (4.50-5.90); RED CELL DISTRIBUTION WIDTH 15.2 % (11.5-14.5)
[2018-07-11] MEDS: BuPROPion HCL XL 150 MG ER TABLET PO SCH (08:17)
[2018-07-11] MEDS: OLANZapine 7.5 MG TABLET PO SCH ×2 (08:17→16:32)
[2018-07-11] MEDS: FOLIC ACID 1 MG TABLET PO SCH (08:17)
[2018-07-11] MEDS: THIAMINE HCL 100 MG TABLET PO SCH (08:17)
[2018-07-11] MEDS: METHADONE HCL 10 MG TABLET PO SCH (08:17)
[2018-07-11 08:20] VITALS: BP 121/70
[2018-07-11 11:09] VITALS: BP 118/72
[2018-07-11 16:11] VITALS: BP 119/64
[2018-07-11 19:24] VITALS: BP 118/69
[2018-07-12 06:19] VITALS: BP 117/73
[2018-07-12] MEDS: FERROUS SULFATE 325 MG EC TABLET PO SCH ×3 (06:41→17:18)
[2018-07-12] MEDS: BuPROPion HCL XL 150 MG ER TABLET PO SCH (08:06)
[2018-07-12] MEDS: FOLIC ACID 1 MG TABLET PO SCH (08:06)
[2018-07-12] MEDS: OLANZapine 7.5 MG TABLET PO SCH ×2 (08:06→17:19)
[2018-07-12] MEDS: THIAMINE HCL 100 MG TABLET PO SCH (08:06)
[2018-07-12 08:11] VITALS: BP 129/76
[2018-07-12] MEDS: TraMADol HCL 50 MG TABLET PO PRN (08:22)
[2018-07-12] MEDS: METHADONE HCL 10 MG TABLET PO SCH (09:20)
[2018-07-12 16:12] VITALS: BP 118/81
[2018-07-12 18:55] VITALS: BP 121/83
[2018-07-12] MEDS: IBUPROFEN 400 MG TABLET PO PRN (18:55)
[2018-07-13 05:53] VITALS: BP 117/84
[2018-07-13] MEDS: FERROUS SULFATE 325 MG EC TABLET PO SCH ×3 (06:35→16:02)
[2018-07-13 08:12] VITALS: BP 109/56
[2018-07-13] MEDS: OLANZapine 7.5 MG TABLET PO SCH ×2 (08:25→16:02)
[2018-07-13] MEDS: METHADONE HCL 10 MG TABLET PO SCH (08:25)
[2018-07-13] MEDS: BuPROPion HCL XL 150 MG ER TABLET PO SCH (08:25)
[2018-07-13] MEDS: THIAMINE HCL 100 MG TABLET PO SCH (08:25)
[2018-07-13] MEDS: FOLIC ACID 1 MG TABLET PO SCH (08:25)
[2018-07-13 16:02] VITALS: BP 124/65
[2018-07-13] MEDS: TraMADol HCL 50 MG TABLET PO PRN (16:02)
[2018-07-13 19:14] VITALS: BP 118/68
[2018-07-13] MEDS: IBUPROFEN 400 MG TABLET PO PRN (19:14)
[2018-07-14 01:03] VITALS: BP 106/65
[2018-07-14] MEDS: FERROUS SULFATE 325 MG EC TABLET PO SCH ×3 (06:40→16:45)
[2018-07-14] MEDS: BuPROPion HCL XL 150 MG ER TABLET PO SCH (08:31)
[2018-07-14] MEDS: OLANZapine 7.5 MG TABLET PO SCH ×2 (08:31→16:45)
[2018-07-14] MEDS: FOLIC ACID 1 MG TABLET PO SCH (08:31)
[2018-07-14] MEDS: THIAMINE HCL 100 MG TABLET PO SCH (08:31)
[2018-07-14] MEDS: METHADONE HCL 10 MG TABLET PO SCH (08:31)
[2018-07-14 09:26] VITALS: BP 119/74
[2018-07-14 13:03] VITALS: BP 116/76
[2018-07-14] MEDS: TraMADol HCL 50 MG TABLET PO PRN (13:03)
[2018-07-14 16:21] VITALS: BP 119/60
[2018-07-15 00:03] VITALS: BP 118/69
[2018-07-15] MEDS: TraMADol HCL 50 MG TABLET PO PRN (00:09)
[2018-07-15] MEDS: FERROUS SULFATE 325 MG EC TABLET PO SCH (06:14)
[2018-07-15 07:00] VITALS: BP 109/79
[2018-07-15] MEDS: IBUPROFEN 400 MG TABLET PO PRN (07:13)
[2018-07-15] MEDS: THIAMINE HCL 100 MG TABLET PO SCH (08:22)
[2018-07-15] MEDS: METHADONE HCL 10 MG TABLET PO SCH (08:22)
[2018-07-15] MEDS: OLANZapine 7.5 MG TABLET PO SCH ×2 (08:22→16:22)
[2018-07-15] MEDS: BuPROPion HCL XL 150 MG ER TABLET PO SCH (08:22)
[2018-07-15] MEDS: FOLIC ACID 1 MG TABLET PO SCH (08:22)
[2018-07-15 08:23] VITALS: BP 124/64
[2018-07-15 16:04] VITALS: BP 121/71
[2018-07-16 00:17] VITALS: BP 108/68
[2018-07-16] MEDS: IBUPROFEN 400 MG TABLET PO PRN ×2 (00:39→18:21)
[2018-07-16 08:18] VITALS: BP 121/65
[2018-07-16] MEDS: OLANZapine 7.5 MG TABLET PO SCH ×2 (08:20→16:12)
[2018-07-16] MEDS: BuPROPion HCL XL 150 MG ER TABLET PO SCH (08:20)
[2018-07-16] MEDS: FOLIC ACID 1 MG TABLET PO SCH (08:20)
[2018-07-16] MEDS: THIAMINE HCL 100 MG TABLET PO SCH (08:20)
[2018-07-16] MEDS: METHADONE HCL 10 MG TABLET PO SCH (08:20)
[2018-07-16 10:12] VITALS: BP 118/72
[2018-07-16] MEDS: TraMADol HCL 50 MG TABLET PO PRN (10:12)
[2018-07-16 16:20] VITALS: BP 114/67
[2018-07-16 18:21] VITALS: BP 118/70
[2018-07-17 00:53] VITALS: BP 115/62
[2018-07-17 08:03] VITALS: BP 111/66
[2018-07-17] MEDS: METHADONE HCL 10 MG TABLET PO SCH (08:16)
[2018-07-17] MEDS: THIAMINE HCL 100 MG TABLET PO SCH (08:17)
[2018-07-17] MEDS: FOLIC ACID 1 MG TABLET PO SCH (08:17)
[2018-07-17] MEDS: OLANZapine 7.5 MG TABLET PO SCH ×2 (08:18→16:50)
[2018-07-17] MEDS: BuPROPion HCL XL 150 MG ER TABLET PO SCH (08:18)
[2018-07-17 16:02] VITALS: BP 125/74
[2018-07-17] MEDS: TraMADol HCL 50 MG TABLET PO PRN (19:44)
[2018-07-17 19:53] VITALS: BP 130/72
[2018-07-18 01:24] VITALS: BP 123/73
[2018-07-18] MEDS: IBUPROFEN 400 MG TABLET PO PRN (01:38)
[2018-07-18] MEDS: TraMADol HCL 50 MG TABLET PO PRN ×2 (05:14→18:13)
[2018-07-18 08:12] VITALS: BP 122/64
[2018-07-18] MEDS: FOLIC ACID 1 MG TABLET PO SCH (08:30)
[2018-07-18] MEDS: THIAMINE HCL 100 MG TABLET PO SCH (08:31)
[2018-07-18] MEDS: METHADONE HCL 10 MG TABLET PO SCH (08:31)
[2018-07-18] MEDS: BuPROPion HCL XL 150 MG ER TABLET PO SCH (08:36)
[2018-07-18] MEDS: OLANZapine 7.5 MG TABLET PO SCH ×2 (08:36→16:31)
[2018-07-18 16:04] VITALS: BP 106/69
[2018-07-18 18:13] VITALS: BP 124/87
[2018-07-19 00:16] VITALS: BP 116/74
[2018-07-19] MEDS: THIAMINE HCL 100 MG TABLET PO SCH (08:36)
[2018-07-19] MEDS: FOLIC ACID 1 MG TABLET PO SCH (08:36)
[2018-07-19] MEDS: BuPROPion HCL XL 150 MG ER TABLET PO SCH (08:36)
[2018-07-19 08:38] VITALS: BP 140/72
[2018-07-19] MEDS: OLANZapine 7.5 MG TABLET PO SCH ×2 (08:38→16:31)
[2018-07-19] MEDS: METHADONE HCL 10 MG TABLET PO SCH (08:39)
[2018-07-19] MEDS: TraMADol HCL 50 MG TABLET PO PRN ×2 (08:40→19:40)
[2018-07-19 16:07] VITALS: BP 123/64
[2018-07-19 19:40] VITALS: BP 137/76
[2018-07-20 04:16] VITALS: BP 141/80
[2018-07-20] MEDS: TraMADol HCL 50 MG TABLET PO PRN ×3 (04:16→22:50)
[2018-07-20 08:03] VITALS: BP 121/71
[2018-07-20] MEDS: FOLIC ACID 1 MG TABLET PO SCH (08:13)
[2018-07-20] MEDS: BuPROPion HCL XL 150 MG ER TABLET PO SCH (08:14)
[2018-07-20] MEDS: OLANZapine 7.5 MG TABLET PO SCH ×2 (08:14→16:37)
[2018-07-20] MEDS: THIAMINE HCL 100 MG TABLET PO SCH (08:14)
[2018-07-20] MEDS: METHADONE HCL 10 MG TABLET PO SCH (08:14)
[2018-07-20 12:36] VITALS: BP 116/66
[2018-07-20 16:09] VITALS: BP 113/62
[2018-07-20 22:50] VITALS: BP 118/70
[2018-07-21 05:32] VITALS: BP 120/81
[2018-07-21 05:33] VITALS: BP 119/83
[2018-07-21 08:07] VITALS: BP 119/69
[2018-07-21] MEDS: METHADONE HCL 10 MG TABLET PO SCH (08:33)
[2018-07-21] MEDS: OLANZapine 7.5 MG TABLET PO SCH ×2 (08:33→17:04)
[2018-07-21] MEDS: FOLIC ACID 1 MG TABLET PO SCH (08:33)
[2018-07-21] MEDS: BuPROPion HCL XL 150 MG ER TABLET PO SCH (08:33)
[2018-07-21] MEDS: THIAMINE HCL 100 MG TABLET PO SCH (08:33)
[2018-07-21] MEDS: TraMADol HCL 50 MG TABLET PO PRN ×2 (11:10→17:13)
[2018-07-21 16:19] VITALS: BP 115/77
[2018-07-21] MEDS: IBUPROFEN 400 MG TABLET PO PRN (20:06)
[2018-07-22 00:12] VITALS: BP 108/63
[2018-07-22 08:03] VITALS: BP 145/75
[2018-07-22] MEDS: METHADONE HCL 10 MG TABLET PO SCH (08:05)
[2018-07-22] MEDS: FOLIC ACID 1 MG TABLET PO SCH (08:05)
[2018-07-22] MEDS: THIAMINE HCL 100 MG TABLET PO SCH (08:05)
[2018-07-22] MEDS: OLANZapine 7.5 MG TABLET PO SCH ×2 (08:05→16:07)
[2018-07-22] MEDS: BuPROPion HCL XL 150 MG ER TABLET PO SCH (08:05)
[2018-07-22 12:14] VITALS: BP 126/77
[2018-07-22] MEDS: TraMADol HCL 50 MG TABLET PO PRN (12:14)
[2018-07-22] MEDS: PredniSONE 20 MG TABLET PO SCH (12:15)
[2018-07-22 16:07] VITALS: BP 109/65
[2018-07-22 16:10] VITALS: BP 110/68
[2018-07-22] MEDS: IBUPROFEN 400 MG TABLET PO PRN (16:47)
[2018-07-23 02:29] VITALS: BP 105/63
[2018-07-23 03:23] VITALS: BP 139/80
[2018-07-23] MEDS: TraMADol HCL 50 MG TABLET PO PRN ×2 (03:27→14:58)
[2018-07-23 08:05] VITALS: BP 137/79
[2018-07-23] MEDS: BuPROPion HCL XL 150 MG ER TABLET PO SCH (08:09)
[2018-07-23] MEDS: PredniSONE 20 MG TABLET PO SCH (08:09)
[2018-07-23] MEDS: OLANZapine 7.5 MG TABLET PO SCH ×2 (08:10→16:30)
[2018-07-23] MEDS: METHADONE HCL 10 MG TABLET PO SCH (08:10)
[2018-07-23] MEDS: FOLIC ACID 1 MG TABLET PO SCH (08:10)
[2018-07-23] MEDS: THIAMINE HCL 100 MG TABLET PO SCH (08:10)
[2018-07-23 14:58] VITALS: BP 128/78
[2018-07-23 16:23] VITALS: BP 149/78
[2018-07-24 04:00] VITALS: BP 129/84
[2018-07-24 08:02] VITALS: BP 155/65
[2018-07-24] MEDS: FOLIC ACID 1 MG TABLET PO SCH (08:13)
[2018-07-24] MEDS: BuPROPion HCL XL 150 MG ER TABLET PO SCH (08:13)
[2018-07-24] MEDS: METHADONE HCL 10 MG TABLET PO SCH (08:13)
[2018-07-24] MEDS: THIAMINE HCL 100 MG TABLET PO SCH (08:13)
[2018-07-24] MEDS: OLANZapine 7.5 MG TABLET PO SCH ×2 (08:13→16:54)
[2018-07-24] MEDS: PredniSONE 20 MG TABLET PO SCH (08:14)
[2018-07-24 09:00] VITALS: BP 124/78
[2018-07-24 13:42] VITALS: BP 126/74
[2018-07-24] MEDS: TraMADol HCL 50 MG TABLET PO PRN (13:42)
[2018-07-24 16:09] VITALS: BP 114/71
[2018-07-24 21:37] VITALS: BP 131/76
[2018-07-24] MEDS: IBUPROFEN 400 MG TABLET PO PRN (21:37)
[2018-07-25 02:11] VITALS: BP 121/63
[2018-07-25] MEDS: TraMADol HCL 50 MG TABLET PO PRN ×2 (02:34→16:20)
[2018-07-25] MEDS: OLANZapine 7.5 MG TABLET PO SCH ×2 (08:16→16:20)
[2018-07-25] MEDS: FOLIC ACID 1 MG TABLET PO SCH (08:16)
[2018-07-25] MEDS: PredniSONE 20 MG TABLET PO SCH (08:17)
[2018-07-25] MEDS: METHADONE HCL 10 MG TABLET PO SCH (08:17)
[2018-07-25] MEDS: BuPROPion HCL XL 150 MG ER TABLET PO SCH (08:17)
[2018-07-25] MEDS: THIAMINE HCL 100 MG TABLET PO SCH (08:17)
[2018-07-25 08:24] VITALS: BP 121/73
[2018-07-25 16:17] VITALS: BP 119/76
[2018-07-26 00:15] VITALS: BP 132/88
[2018-07-26] MEDS: TraMADol HCL 50 MG TABLET PO PRN ×2 (00:17→12:59)
[2018-07-26 08:00] VITALS: BP 121/55
[2018-07-26] MEDS: FOLIC ACID 1 MG TABLET PO SCH (08:29)
[2018-07-26] MEDS: PredniSONE 20 MG TABLET PO SCH (08:29)
[2018-07-26] MEDS: BuPROPion HCL XL 150 MG ER TABLET PO SCH (08:29)
[2018-07-26] MEDS: OLANZapine 7.5 MG TABLET PO SCH (08:30)
[2018-07-26] MEDS: METHADONE HCL 10 MG TABLET PO SCH (08:31)
[2018-07-26] MEDS: THIAMINE HCL 100 MG TABLET PO SCH (09:36)
[2018-07-26 12:59] VITALS: BP 135/79
[2018-07-26 16:12] VITALS: BP 130/78
[2018-07-26] MEDS: OLANZapine 10 MG TABLET PO SCH (16:32)
[2018-07-27 00:39] VITALS: BP 128/82
[2018-07-27] MEDS: TraMADol HCL 50 MG TABLET PO PRN ×2 (02:52→18:16)
[2018-07-27 02:53] VITALS: BP 145/86
[2018-07-27 08:13] VITALS: BP 132/68
[2018-07-27] MEDS: THIAMINE HCL 100 MG TABLET PO SCH (08:16)
[2018-07-27] MEDS: BuPROPion HCL XL 150 MG ER TABLET PO SCH (08:16)
[2018-07-27] MEDS: FOLIC ACID 1 MG TABLET PO SCH (08:16)
[2018-07-27] MEDS: PredniSONE 20 MG TABLET PO SCH (08:16)
[2018-07-27] MEDS: METHADONE HCL 10 MG TABLET PO SCH (08:16)
[2018-07-27] MEDS: OLANZapine 10 MG TABLET PO SCH ×2 (08:16→16:34)
[2018-07-27 12:38] VITALS: BP 113/67
[2018-07-27] MEDS: IBUPROFEN 400 MG TABLET PO PRN (12:38)
[2018-07-27 16:13] VITALS: BP 114/70
[2018-07-27 18:16] VITALS: BP 131/79
[2018-07-28 02:53] VITALS: BP 104/63
[2018-07-28] MEDS: THIAMINE HCL 100 MG TABLET PO SCH (08:15)
[2018-07-28] MEDS: METHADONE HCL 10 MG TABLET PO SCH (08:15)
[2018-07-28] MEDS: OLANZapine 10 MG TABLET PO SCH ×2 (08:15→16:30)
[2018-07-28] MEDS: FOLIC ACID 1 MG TABLET PO SCH (08:16)
[2018-07-28] MEDS: BuPROPion HCL XL 150 MG ER TABLET PO SCH (08:16)
[2018-07-28] MEDS: PredniSONE 20 MG TABLET PO SCH (08:16)
[2018-07-28 08:21] VITALS: BP 121/60
[2018-07-28 10:23] VITALS: BP 116/78
[2018-07-28] MEDS: IBUPROFEN 400 MG TABLET PO PRN (10:23)
[2018-07-28 16:08] VITALS: BP 117/76
[2018-07-28] MEDS: TraMADol HCL 50 MG TABLET PO PRN (16:13)
[2018-07-29] MEDS: TraMADol HCL 50 MG TABLET PO PRN ×2 (02:15→13:06)
[2018-07-29 02:30] VITALS: BP 122/88
[2018-07-29 08:10] VITALS: BP 130/68
[2018-07-29] MEDS: BuPROPion HCL XL 150 MG ER TABLET PO SCH (08:27)
[2018-07-29] MEDS: THIAMINE HCL 100 MG TABLET PO SCH (08:27)
[2018-07-29] MEDS: PredniSONE 20 MG TABLET PO SCH (08:27)
[2018-07-29] MEDS: METHADONE HCL 10 MG TABLET PO SCH (08:27)
[2018-07-29] MEDS: OLANZapine 10 MG TABLET PO SCH ×2 (08:27→17:03)
[2018-07-29] MEDS: FOLIC ACID 1 MG TABLET PO SCH (08:27)
[2018-07-29 13:06] VITALS: BP 125/75
[2018-07-29 16:26] VITALS: BP 109/69
[2018-07-29] MEDS: IBUPROFEN 400 MG TABLET PO PRN (20:11)
[2018-07-29 20:12] VITALS: BP 126/79
[2018-07-30 03:05] VITALS: BP 128/80
[2018-07-30 08:03] VITALS: BP 115/77
[2018-07-30] MEDS: BuPROPion HCL XL 150 MG ER TABLET PO SCH (08:08)
[2018-07-30] MEDS: OLANZapine 10 MG TABLET PO SCH ×2 (08:09→16:14)
[2018-07-30] MEDS: PredniSONE 20 MG TABLET PO SCH (08:09)
[2018-07-30] MEDS: FOLIC ACID 1 MG TABLET PO SCH (08:09)
[2018-07-30] MEDS: THIAMINE HCL 100 MG TABLET PO SCH (08:09)
[2018-07-30] MEDS: METHADONE HCL 10 MG TABLET PO SCH (08:09)
[2018-07-30 16:02] VITALS: BP 128/76
[2018-07-30 18:06] VITALS: BP 122/78
[2018-07-30] MEDS: TraMADol HCL 50 MG TABLET PO PRN (18:06)
[2018-07-31 00:38] VITALS: BP 102/63
[2018-07-31 07:45] VITALS: BP 142/85
[2018-07-31 08:02] VITALS: BP 142/85
[2018-07-31] MEDS: METHADONE HCL 10 MG TABLET PO SCH (08:10)
[2018-07-31] MEDS: BuPROPion HCL XL 150 MG ER TABLET PO SCH (08:10)
[2018-07-31] MEDS: THIAMINE HCL 100 MG TABLET PO SCH (08:10)
[2018-07-31] MEDS: FOLIC ACID 1 MG TABLET PO SCH (08:11)
[2018-07-31] MEDS: PredniSONE 20 MG TABLET PO SCH (08:11)
[2018-07-31] MEDS: OLANZapine 10 MG TABLET PO SCH ×2 (08:11→16:06)
[2018-07-31 16:06] VITALS: BP 125/72
[2018-07-31] MEDS: TraMADol HCL 50 MG TABLET PO PRN (16:06)
[2018-07-31] MEDS: LORazepam 1 MG TABLET PO PRN (23:43)
[2018-08-01] MEDS: TraMADol HCL 50 MG TABLET PO PRN ×2 (00:13→17:04)
[2018-08-01 00:19] VITALS: BP 107/79
[2018-08-01] MEDS: FOLIC ACID 1 MG TABLET PO SCH (08:23)
[2018-08-01] MEDS: OLANZapine 10 MG TABLET PO SCH ×2 (08:23→16:20)
[2018-08-01] MEDS: METHADONE HCL 10 MG TABLET PO SCH (08:23)
[2018-08-01] MEDS: PredniSONE 20 MG TABLET PO SCH (08:23)
[2018-08-01] MEDS: BuPROPion HCL XL 150 MG ER TABLET PO SCH (08:23)
[2018-08-01] MEDS: THIAMINE HCL 100 MG TABLET PO SCH (08:23)
[2018-08-01 08:36] VITALS: BP 120/60
[2018-08-01 16:09] VITALS: BP 121/83
[2018-08-01 17:05] VITALS: BP 123/88
[2018-08-02 00:10] VITALS: BP 109/63
[2018-08-02 08:17] VITALS: BP 137/79
[2018-08-02] MEDS: OLANZapine 10 MG TABLET PO SCH ×2 (09:25→16:17)
[2018-08-02] MEDS: BuPROPion HCL XL 150 MG ER TABLET PO SCH (09:25)
[2018-08-02] MEDS: PredniSONE 20 MG TABLET PO SCH (09:25)
[2018-08-02] MEDS: FOLIC ACID 1 MG TABLET PO SCH (09:27)
[2018-08-02] MEDS: THIAMINE HCL 100 MG TABLET PO SCH (09:27)
[2018-08-02] MEDS: METHADONE HCL 10 MG TABLET PO SCH (09:31)
[2018-08-02] MEDS: TraMADol HCL 50 MG TABLET PO PRN (15:46)
[2018-08-02 16:00] VITALS: BP 130/68
[2018-08-03] MEDS: LORazepam 1 MG TABLET PO PRN (00:19)
[2018-08-03] MEDS: TraMADol HCL 50 MG TABLET PO PRN ×2 (00:19→12:50)
[2018-08-03 00:21] VITALS: BP 138/85
[2018-08-03 08:05] VITALS: BP 112/69
[2018-08-03] MEDS: THIAMINE HCL 100 MG TABLET PO SCH (08:38)
[2018-08-03] MEDS: OLANZapine 10 MG TABLET PO SCH ×2 (08:38→16:18)
[2018-08-03] MEDS: METHADONE HCL 10 MG TABLET PO SCH (08:38)
[2018-08-03] MEDS: BuPROPion HCL XL 150 MG ER TABLET PO SCH (08:38)
[2018-08-03] MEDS: FOLIC ACID 1 MG TABLET PO SCH (08:38)
[2018-08-03] MEDS: PredniSONE 20 MG TABLET PO SCH (08:38)
[2018-08-03 12:50] VITALS: BP 116/78
[2018-08-03 16:14] VITALS: BP 124/63
[2018-08-04 01:12] VITALS: BP 133/76
[2018-08-04] MEDS: FERROUS SULFATE 325 MG EC TABLET PO SCH ×3 (07:00→16:55)
[2018-08-04 08:09] VITALS: BP 135/87
[2018-08-04] MEDS: THIAMINE HCL 100 MG TABLET PO SCH (08:32)
[2018-08-04] MEDS: OLANZapine 10 MG TABLET PO SCH ×2 (08:32→16:55)
[2018-08-04] MEDS: BuPROPion HCL XL 150 MG ER TABLET PO SCH (08:32)
[2018-08-04] MEDS: FOLIC ACID 1 MG TABLET PO SCH (08:32)
[2018-08-04] MEDS: METHADONE HCL 10 MG TABLET PO SCH (08:32)
[2018-08-04] MEDS: PredniSONE 20 MG TABLET PO SCH (08:32)
[2018-08-04 16:02] VITALS: BP 121/68
[2018-08-05 05:44] VITALS: BP 104/62
[2018-08-05] MEDS: FERROUS SULFATE 325 MG EC TABLET PO SCH ×3 (06:11→16:08)
[2018-08-05] MEDS: BuPROPion HCL XL 150 MG ER TABLET PO SCH (08:10)
[2018-08-05] MEDS: OLANZapine 10 MG TABLET PO SCH ×2 (08:10→16:08)
[2018-08-05] MEDS: FOLIC ACID 1 MG TABLET PO SCH (08:11)
[2018-08-05] MEDS: THIAMINE HCL 100 MG TABLET PO SCH (08:11)
[2018-08-05] MEDS: PredniSONE 20 MG TABLET PO SCH (08:11)
[2018-08-05] MEDS: METHADONE HCL 10 MG TABLET PO SCH (08:11)
[2018-08-05 08:21] VITALS: BP 105/50
[2018-08-05 16:00] VITALS: BP 122/76
[2018-08-05] MEDS: TraMADol HCL 50 MG TABLET PO PRN (17:38)
[2018-08-05 18:38] VITALS: BP 120/78
[2018-08-05] MEDS: LORazepam 1 MG TABLET PO PRN (20:14)
[2018-08-05] MEDS ORDERED: ZOLPIDEM TARTRATE 10 MG TABLET PO PRN (20:15)
[2018-08-05] MEDS: ZOLPIDEM TARTRATE 10 MG TABLET PO PRN (21:10)
[2018-08-06 03:08] VITALS: BP 103/62
[2018-08-06] MEDS: FERROUS SULFATE 325 MG EC TABLET PO SCH ×3 (06:21→17:09)
[2018-08-06] MEDS: PredniSONE 20 MG TABLET PO SCH (08:51)
[2018-08-06] MEDS: THIAMINE HCL 100 MG TABLET PO SCH (08:51)
[2018-08-06] MEDS: FOLIC ACID 1 MG TABLET PO SCH (08:52)
[2018-08-06] MEDS: BuPROPion HCL XL 150 MG ER TABLET PO SCH (08:52)
[2018-08-06] MEDS: OLANZapine 10 MG TABLET PO SCH ×2 (08:52→17:09)
[2018-08-06] MEDS ORDERED: METHADONE HCL 10 MG/5 ML SOLUTION ORAL.SYG PO SCH (09:00)
[2018-08-06] MEDS: METHADONE HCL 10 MG TABLET PO SCH (09:37)
[2018-08-06 10:36] VITALS: BP 132/72
[2018-08-06 13:06] VITALS: BP 125/72
[2018-08-06] MEDS: TraMADol HCL 50 MG TABLET PO PRN (13:06)
[2018-08-06] MEDS: LORazepam 1 MG TABLET PO PRN (14:36)
[2018-08-06 16:07] VITALS: BP 131/66
[2018-08-06] MEDS: ZOLPIDEM TARTRATE 10 MG TABLET PO PRN (20:30)
[2018-08-07 00:13] VITALS: BP 107/78
[2018-08-07] MEDS: FERROUS SULFATE 325 MG EC TABLET PO SCH ×3 (07:04→16:20)
[2018-08-07] MEDS: METHADONE HCL 10 MG TABLET PO SCH (08:15)
[2018-08-07] MEDS: PredniSONE 20 MG TABLET PO SCH (08:16)
[2018-08-07] MEDS: THIAMINE HCL 100 MG TABLET PO SCH (08:16)
[2018-08-07] MEDS: BuPROPion HCL XL 150 MG ER TABLET PO SCH (08:16)
[2018-08-07] MEDS: OLANZapine 10 MG TABLET PO SCH ×2 (08:16→16:20)
[2018-08-07] MEDS: FOLIC ACID 1 MG TABLET PO SCH (08:16)
[2018-08-07 08:43] VITALS: BP 139/72
[2018-08-07] MEDS: LORazepam 1 MG TABLET PO PRN ×2 (10:08→16:21)
[2018-08-07 16:08] VITALS: BP 119/75
[2018-08-07] MEDS: TraMADol HCL 50 MG TABLET PO PRN (19:11)
[2018-08-07] MEDS: ZOLPIDEM TARTRATE 10 MG TABLET PO PRN (20:10)
[2018-08-08 00:54] VITALS: BP 104/63
[2018-08-08] MEDS: FERROUS SULFATE 325 MG EC TABLET PO SCH ×3 (06:03→16:46)
[2018-08-08 08:07] VITALS: BP 115/69
[2018-08-08] MEDS: FOLIC ACID 1 MG TABLET PO SCH (08:17)
[2018-08-08] MEDS: BuPROPion HCL XL 150 MG ER TABLET PO SCH (08:17)
[2018-08-08] MEDS: OLANZapine 10 MG TABLET PO SCH ×2 (08:17→16:46)
[2018-08-08] MEDS: THIAMINE HCL 100 MG TABLET PO SCH (08:17)
[2018-08-08] MEDS: PredniSONE 20 MG TABLET PO SCH (08:17)
[2018-08-08] MEDS: METHADONE HCL 10 MG TABLET PO SCH (08:18)
[2018-08-08] MEDS: LORazepam 1 MG TABLET PO PRN (12:20)
[2018-08-08 16:11] VITALS: BP 123/77
[2018-08-08 18:51] VITALS: BP 126/76
[2018-08-08] MEDS: TraMADol HCL 50 MG TABLET PO PRN (18:51)
[2018-08-08] MEDS: ZOLPIDEM TARTRATE 10 MG TABLET PO PRN (20:42)
[2018-08-09 04:18] VITALS: BP 118/73
[2018-08-09] MEDS: FERROUS SULFATE 325 MG EC TABLET PO SCH ×3 (06:47→16:10)
[2018-08-09] MEDS: METHADONE HCL 10 MG TABLET PO SCH (08:20)
[2018-08-09] MEDS: OLANZapine 10 MG TABLET PO SCH ×2 (08:20→16:10)
[2018-08-09] MEDS: BuPROPion HCL XL 150 MG ER TABLET PO SCH (08:20)
[2018-08-09] MEDS: THIAMINE HCL 100 MG TABLET PO SCH (08:20)
[2018-08-09] MEDS: FOLIC ACID 1 MG TABLET PO SCH (08:20)
[2018-08-09] MEDS: PredniSONE 20 MG TABLET PO SCH (08:21)
[2018-08-09 09:07] VITALS: BP 110/60
[2018-08-09] MEDS: LORazepam 1 MG TABLET PO PRN ×2 (12:35→17:01)
[2018-08-09 16:01] VITALS: BP 133/78
[2018-08-09] MEDS: TraMADol HCL 50 MG TABLET PO PRN (16:10)
[2018-08-09] MEDS: TEMAZEPAM 15 MG CAPSULE PO PRN (20:09)
[2018-08-10 00:40] VITALS: BP 109/64
[2018-08-10] MEDS: TraMADol HCL 50 MG TABLET PO PRN ×2 (04:17→17:28)
[2018-08-10] MEDS: FERROUS SULFATE 325 MG EC TABLET PO SCH ×3 (06:56→16:30)
[2018-08-10] MEDS: THIAMINE HCL 100 MG TABLET PO SCH (08:22)
[2018-08-10] MEDS: PredniSONE 20 MG TABLET PO SCH (08:22)
[2018-08-10] MEDS: FOLIC ACID 1 MG TABLET PO SCH (08:22)
[2018-08-10] MEDS: OLANZapine 10 MG TABLET PO SCH ×2 (08:22→16:30)
[2018-08-10] MEDS: BuPROPion HCL XL 150 MG ER TABLET PO SCH (08:22)
[2018-08-10] MEDS: METHADONE HCL 10 MG TABLET PO SCH (08:23)
[2018-08-10 08:33] VITALS: BP 126/72
[2018-08-10 09:45] VITALS: BP 118/74
[2018-08-10] MEDS: IBUPROFEN 400 MG TABLET PO PRN (09:45)
[2018-08-10 16:04] VITALS: BP 134/76
[2018-08-10 17:21] VITALS: BP 124/78
[2018-08-10] MEDS: TEMAZEPAM 15 MG CAPSULE PO PRN (20:53)
[2018-08-11 04:25] VITALS: BP 119/75
[2018-08-11] MEDS: LORazepam 1 MG TABLET PO PRN (04:28)
[2018-08-11] MEDS: FERROUS SULFATE 325 MG EC TABLET PO SCH ×2 (06:35→11:50)
[2018-08-11 08:03] VITALS: BP 117/68
[2018-08-11] MEDS: PredniSONE 20 MG TABLET PO SCH (08:21)
[2018-08-11] MEDS: FOLIC ACID 1 MG TABLET PO SCH (08:21)
[2018-08-11] MEDS: OLANZapine 10 MG TABLET PO SCH (08:21)
[2018-08-11] MEDS: THIAMINE HCL 100 MG TABLET PO SCH (08:21)
[2018-08-11] MEDS: BuPROPion HCL XL 150 MG ER TABLET PO SCH (08:21)
[2018-08-11] MEDS ORDERED: PRED20 PO (08:55)
[2018-08-11] MEDS ORDERED: THIA100T67 PO (09:02)
[2018-08-11] MEDS ORDERED: FOLI1 PO (09:02)
[2018-08-11] MEDS ORDERED: ALBU8HFA IH (09:07)
[2018-08-11 09:35] VITALS: BP 118/70
[2018-08-11] MEDS: TraMADol HCL 50 MG TABLET PO PRN (09:35)
== END 2018-08-11 15:05 | disposition home or self-care (01) | DRG 885 ==
LOC: B2X 20:00
PROVIDERS: ADMIT Psychiatry & Neurology Psychiatry; ATTEND Psychiatry & Neurology Psychiatry
PROC: HZ2ZZZZ Detoxification Services for Substance Abuse Treatment (ICD-10-PCS; principal; 2018-06-10)
DX: F33.3 Major depressive disorder, recurrent, severe with psychotic symptoms (principal); E43 Unspecified severe protein-calorie malnutrition; F11.20 Opioid dependence, uncomplicated; J18.9 Pneumonia, unspecified organism; R45.851 Suicidal ideations; Z68.1 Body mass index [BMI] 19.9 or less, adult; I10 Essential (primary) hypertension; K21.9 Gastro-esophageal reflux disease without esophagitis; D64.9 Anemia, unspecified; F10.10 Alcohol abuse, uncomplicated; R41.0 Disorientation, unspecified; M19.90 Unspecified osteoarthritis, unspecified site; M79.89 Other specified soft tissue disorders; M47.9 Spondylosis, unspecified; F41.9 Anxiety disorder, unspecified; Z59.0 Homelessness
CPT/HCPCS: 72040; 72070; 72100; 83036; 84439; 84443; 84550; 87081

== ENCOUNTER 2018-06-12 12:30 | Emergency (ER) | payer MEDICARE, OTHER ==
[~2018-06-12] VITALS: Ht 175.3 cm; Wt 68.0 kg
[2018-06-12 13:29] LABS: BASOPHILS % (AUTO) 0.6 % (0.0-2.0); EOSINOPHILS % (AUTO) 0.3 % (1.0-6.0); HEMATOCRIT 29.6 % (41-53); HEMOGLOBIN 9.9 g/dL (13.5-17.5); LYMPHOCYTES % (AUTO) 13.6 % (22.0-44.0); MEAN CORPUSCULAR HEMOGLOBIN 30.4 pg (26.0-34.0); MEAN CORPUSCULAR HGB CONC 33.5 G/dL (31.0-37.0); MEAN CORPUSCULAR VOLUME 91 fL (80-100); MONOCYTES # (AUTO) 0.9 K/uL (0.1-1.0); MONOCYTES % (AUTO) 11.7 % (2.0-9.0); NEUTROPHILS # (AUTO) 5.5 K/uL (1.8-7.7); NEUTROPHILS % (AUTO) 73.8 % (40.0-70.0); PLATELET COUNT (AUTO) 392 K/uL (150-450); RED BLOOD CELL COUNT(AUTO) 3.26 MIL/uL (4.50-5.90); RED CELL DISTRIBUTION WIDTH 15.2 % (11.5-14.5)
[2018-06-12 13:48] LABS: ALANINE AMINOTRANSFERASE 41 U/L (12-78); ALKALINE PHOSPHATASE 119 U/L (46-116); ANION GAP 5 mmol/L (8-16); ASPARTATE AMINOTRANSFERASE 43 U/L (15-37); BILIRUBIN,TOTAL 0.2 mg/dL (0.1-1.0); CALCIUM, TOTAL 8.4 mg/dL (8.8-10.5); CARBON DIOXIDE 31 mmol/L (22-29); CHLORIDE 103 mmol/L (98-107); GLOMERULAR FILTR. RATE CALC > 60 mL/min (>60); GLUCOSE,RANDOM 98 mg/dL (70-110); LIPASE 106 U/L (73-393); POTASSIUM 4.3 mmol/L (3.5-5.1); SODIUM SERUM 139 mmol/L (136-145); TOTAL PROTEIN, SERUM 7.5 g/dL (6.4-8.2)
[2018-06-12 13:56] LABS: UREA NITROGEN, BLOOD 15 mg/dL (7-18)
[2018-06-12] MEDS ORDERED: KETOROLAC TROMETHAMINE 30 MG/ML VIAL IVP ONE (15:00)
[2018-06-12] MEDS ORDERED: BENZONATATE 100 MG CAPSULE PO ONE (15:00)
[2018-06-12] MEDS ORDERED: AZITHROMYCIN 250 MG TABLET PO ONE (15:00)
[2018-06-12] MEDS ORDERED: KETOROLAC TROMETHAMINE 60 MG/2 ML VIAL IM ONE (15:30)
[2018-06-12 16:37] VITALS: BP 127/72
== END 2018-06-12 17:22 | disposition home or self-care (01) ==
LOC: EMS 12:31
DX: J18.0 Bronchopneumonia, unspecified organism (principal); I10 Essential (primary) hypertension; F32.9 Major depressive disorder, single episode, unspecified; F11.90 Opioid use, unspecified, uncomplicated
CPT/HCPCS: 36415; 71045; 80053; 83690; 84484; 85025; 93005; 96372; 99285; J1885

== ENCOUNTER 2019-07-31 15:46 | Emergency (ER) | payer MEDICARE, OTHER ==
[~2019-07-31] VITALS: Ht 175.3 cm; Wt 72.7 kg
[~2019-07-31 15:46] MED LIST changes: +AMLO5TAB9 PO; -AZIT250T9 PO; +BUPR-93 PO; -CLON-570 PO; +FERR-89 PO; +FOLI1 PO; +OLAN10TA3 PO; -RANI150T7 PO; +THIA100T67 PO
[2019-07-31] MEDS ORDERED: ACETAMINOPHEN 325 MG TABLET PO ONE (16:15)
[2019-07-31 16:28] VITALS: BP 118/81
== END 2019-07-31 16:38 | disposition home or self-care (01) ==
LOC: EMS 15:46
DX: S00.83XA Contusion of other part of head, initial encounter (principal); I10 Essential (primary) hypertension; F32.9 Major depressive disorder, single episode, unspecified; F11.90 Opioid use, unspecified, uncomplicated; Z79.899 Other long term (current) drug therapy; Y04.0XXA Assault by unarmed brawl or fight, initial encounter; Y93.89 Activity, other specified; Y92.89 Other specified places as the place of occurrence of the external cause; Y99.8 Other external cause status

== ENCOUNTER 2020-10-17 12:37 | Emergency (ER) | payer MEDICARE, OTHER ==
[~2020-10-17] VITALS: Ht 175.3 cm; Wt 72.7 kg
[~2020-10-17 12:37] MED LIST changes: +AMLO-257 PO; -AMLO5TAB9 PO; +FOLI-130 PO; -FOLI1 PO; -THIA100T67 PO; +THIAMINE HCL100 MG PO
[2020-10-17 13:45] VITALS: BP 144/72
[2020-10-17] MEDS ORDERED: IBUPROFEN 600 MG TABLET PO ONE (14:15)
== END 2020-10-17 15:05 | disposition home or self-care (01) ==
LOC: EMS 13:04
DX: T40.2X1A Poisoning by other opioids, accidental (unintentional), initial encounter (principal); F32.9 Major depressive disorder, single episode, unspecified; I10 Essential (primary) hypertension; F11.90 Opioid use, unspecified, uncomplicated; Z79.899 Other long term (current) drug therapy; Y92.89 Other specified places as the place of occurrence of the external cause
CPT/HCPCS: 99283